=== PATIENT | male | born 1970 | race Caucasian/White ===

== ENCOUNTER → 2019-09-13 07:05 | Outpatient (CLI) | payer BC, SELFPAY ==
--- NOTE | 2019-09-13 14:07 | PFTCOMP_ITS ---
COMPLETE PULMONARY FUNCTION TEST INTERPRETATION Brief HPI: Patient is a 48 year old female, currently under the care of myself, who presents to [facility] for complete pulmonary function tests secondary to diagnosis of dyspnea. Respiratory therapist reports good effort and reproducible results. Interpretation: Forced expiration spirometry shows no large airways obstructive ventilatory defect with an FEV1 of 85% predicted. There is no significant bronchodilator response by strict ATS criteria. Spirograms are of good quality and plateau normally. The respiratory flow volume loop shows a normal pattern. Lung volumes by body plethysmography show lung volumes at the lower limit of normal with total lung capacity at 4.49 L, 90% predicted. All other lung volumes are reduced symmetrically. Diffusion capacity by carbon monoxide is normal at 106% predicted. The airway r esistance is normal. No previous pulmonary function tests were available for review. Impression: These pulmonary function tests are within normal limits.
== END ==
PROVIDERS: PCP Nurse Practitioner Family; Referring Provider Internal Medicine Critical Care Medicine; Visit Provider Internal Medicine Critical Care Medicine
DX: R06.02 Shortness of breath (principal)
CPT/HCPCS: 94060; 94726; 94729